=== PATIENT | female | born 1935 | race Caucasian/White ===

== ENCOUNTER → 2023-05-18 11:37 | Outpatient (REF) | payer OTHER, SELFPAY ==
[2023-05-18 12:50] LABS: Hematocrit 37.8 % (37.0-47.0); Hemoglobin 12.2 g/dL (12.0-16.0)
[2023-05-18 12:57] LABS: Intact PTH 131.2 pg/ml (13.6-85.8)
[2023-05-18 12:58] LABS: Protein/creatinine Ratio 2.5; Urine Protein 97 mg/dl
[2023-05-18 13:19] LABS: Albumin 3.7 g/dl (3.5-5.0); Blood Urea Nitrogen 36 mg/dl (7-17); Calcium 9.1 mg/dl (8.4-10.2); Carbon Dioxide 28 mmol/L (22-30); Chloride 103 mmol/L (98-107); Glucose 255 mg/dl (70-99); Phosphorus 4.9 mg/dl (2.5-4.5); Sodium 138 mmol/L (135-145)
== END ==
LOC: REG 11:37
PROVIDERS: ATTENDING PHYSICIAN Specialist; FAMILY PHYSICIAN Family Medicine; REFERRING PHYSICIAN Internal Medicine Cardiovascular Disease
DX: N18.32 Chronic kidney disease, stage 3b (principal)
CPT/HCPCS: 36415; 80069; 82570; 83970; 84156; 85014; 85018

== ENCOUNTER → 2023-06-23 10:56 | Outpatient (REF) | payer OTHER, SELFPAY ==
[2023-06-23 11:54] LABS: NT-proBNP 963 pg/ml
[2023-06-23 12:01] LABS: Blood Urea Nitrogen 42 mg/dl (7-17); Calcium 9.1 mg/dl (8.4-10.2); Carbon Dioxide 26 mmol/L (22-30); Chloride 102 mmol/L (98-107); Glucose 215 mg/dl (70-99); Potassium 4.1 mmol/L (3.5-5.1); Sodium 136 mmol/L (135-145); eGFR 23.88
[2023-06-26 02:42] LABS: 24 Hour Urine Total Volume Random mL; Urine Collection Length Random hr; Urine Free Kappa Light Chains 154.58 mg/L (0.00-32.90); Urine Free Lambda Light Chains 40.67 mg/L (0.00-3.79)
[2023-06-26 20:06] LABS: Albumin 3.84 g/dL (3.75-5.01); Alpha 1 Globulin 0.29 g/dL (0.19-0.46); Alpha 2 Globulin 1.04 g/dL (0.48-1.05); IgG 930 mg/dL (768-1632); IgM 90 mg/dL (35-263); SPEP IFE Reflex IFE Done; Total Protein-Electrophoresis 7.1 g/dL (6.3-8.2)
[2023-06-26 20:07] LABS: IgA 368 mg/dL (68-408)
== END ==
LOC: REG 10:56
PROVIDERS: ATTENDING PHYSICIAN Specialist; FAMILY PHYSICIAN Family Medicine
DX: N18.32 Chronic kidney disease, stage 3b (principal); I10 Essential (primary) hypertension; R06.09 Other forms of dyspnea; I50.22 Chronic systolic (congestive) heart failure
CPT/HCPCS: 36415; 80069; 82784; 83521; 83880; 84155; 84156; 84165; 86334; 86335

== ENCOUNTER → 2023-07-10 13:22 | Outpatient (REF) | payer OTHER, SELFPAY | LOC: HWRAD 13:22 | PROVIDERS: ATTENDING PHYSICIAN Specialist; FAMILY PHYSICIAN Family Medicine | DX: N39.0 Urinary tract infection, site not specified (principal) | CPT/HCPCS: 76770 ==

== ENCOUNTER → 2023-10-19 13:59 | Outpatient (REF) | payer OTHER, SELFPAY ==
[2023-10-19 15:04] LABS: Blood Urea Nitrogen 54 mg/dl (7-17); Calcium 9.3 mg/dl (8.4-10.2); Carbon Dioxide 22 mmol/L (22-30); Chloride 102 mmol/L (98-107); Glucose 382 mg/dl (70-99); Potassium 3.9 mmol/L (3.5-5.1); Sodium 136 mmol/L (135-145); eGFR 23.88
== END ==
LOC: REG 13:59
PROVIDERS: ATTENDING PHYSICIAN Internal Medicine; FAMILY PHYSICIAN Family Medicine
DX: N18.32 Chronic kidney disease, stage 3b (principal)
CPT/HCPCS: 36415; 80048

== ENCOUNTER → 2023-11-02 12:22 | Outpatient (REF) | payer OTHER, SELFPAY ==
[2023-11-02 15:01] LABS: Blood Urea Nitrogen 66 mg/dl (7-17); Calcium 9.6 mg/dl (8.4-10.2); Carbon Dioxide 25 mmol/L (22-30); Chloride 102 mmol/L (98-107); Glucose 246 mg/dl (70-99); Potassium 4.1 mmol/L (3.5-5.1); Sodium 138 mmol/L (135-145); eGFR 22.52
== END ==
LOC: REG 12:22
PROVIDERS: ATTENDING PHYSICIAN Specialist; FAMILY PHYSICIAN Family Medicine
DX: N18.4 Chronic kidney disease, stage 4 (severe) (principal)
CPT/HCPCS: 36415; 80048

== ENCOUNTER → 2023-11-11 09:25 | Outpatient (REF) | payer OTHER, SELFPAY ==
[2023-11-11 11:15] LABS: % Basophils 0.3 % (0-2); % Eosinophils 1.9 % (0-6); % Immature Granulocytes 0.7 % (0-0.5); % Lymphocytes 16.5 % (20.5-51.1); % Monocytes 8.4 % (1.7-9.3); % Neutrophils 72.2 % (42.2-75.2); Absolute Eosinophils 0.1 10^3/uL (0-0.7); Absolute Immature Granulocytes 0.1 10^3/uL (0-0.05); Absolute Lymphocytes 1.1 10^3/uL (1.2-3.4); Absolute Monocytes 0.6 10^3/uL (0.1-0.6); Absolute Neutrophils 4.8 10^3/uL (1.4-6.5); Hematocrit 35.6 % (37.0-47.0); Hemoglobin 11.6 g/dL (12.0-16.0); Mean Corp Hgb Conc. 32.6 g/dL (33.0-37.0); Mean Corpuscular Volume 79.6 fL (81.0-99.0); Mean Platelet Volume 11.5 fL (7.4-10.4); Nucleated Red Blood Cells % 0 %; Platelet Count 133 10^3/uL (130-400); Red Blood Cell Count 4.47 10^6/uL (4.20-5.40); Red Cell Dist. Width 15.8 % (11.5-14.5); White Blood Cell Count 6.7 10^3/uL (4.8-10.8)
[2023-11-11 13:06] LABS: Glycohemoglobin (HgbA1c) 8.8 % (4.0-5.6)
== END ==
LOC: REG 09:25
PROVIDERS: ATTENDING PHYSICIAN Family Medicine
DX: E11.65 Type 2 diabetes mellitus with hyperglycemia (principal)
CPT/HCPCS: 36415; 83036; 85025

== ENCOUNTER → 2023-11-24 09:47 | Outpatient (REF) | payer OTHER, SELFPAY ==
[2023-11-24 10:38] LABS: % Basophils 0.5 % (0-2); % Eosinophils 2.4 % (0-6); % Immature Granulocytes 0.5 % (0-0.5); % Lymphocytes 19.9 % (20.5-51.1); % Monocytes 6.9 % (1.7-9.3); % Neutrophils 69.8 % (42.2-75.2); Absolute Eosinophils 0.2 10^3/uL (0-0.7); Absolute Lymphocytes 1.3 10^3/uL (1.2-3.4); Absolute Monocytes 0.4 10^3/uL (0.1-0.6); Absolute Neutrophils 4.4 10^3/uL (1.4-6.5); Hematocrit 39.2 % (37.0-47.0); Hemoglobin 12.6 g/dL (12.0-16.0); Mean Corp Hgb Conc. 32.1 g/dL (33.0-37.0); Mean Corpuscular Hgb 25.9 pg (27.0-31.0); Mean Corpuscular Volume 80.7 fL (81.0-99.0); Mean Platelet Volume 10.9 fL (7.4-10.4); Nucleated Red Blood Cells % 0 %; Platelet Count 147 10^3/uL (130-400); Red Blood Cell Count 4.86 10^6/uL (4.20-5.40); Red Cell Dist. Width 16.1 % (11.5-14.5); White Blood Cell Count 6.3 10^3/uL (4.8-10.8)
[2023-11-24 10:47] LABS: ALT (SGPT) 16 U/L (0-35); AST (SGOT) 26 U/L (14-36); Albumin 4.2 g/dl (3.5-5.0); Alkaline Phosphatase 98 U/L (38-126); Blood Urea Nitrogen 43 mg/dl (7-17); Calcium 8.9 mg/dl (8.4-10.2); Carbon Dioxide 25 mmol/L (22-30); Chloride 101 mmol/L (98-107); Glucose 241 mg/dl (70-99); HDL Cholesterol 46 mg/dl; LDL Cholesterol, Calculated 103 mg/dl; Potassium 4.2 mmol/L (3.5-5.1); Sodium 137 mmol/L (135-145); Total Bilirubin 0.5 mg/dl (0.2-1.3); Total Cholesterol 203 mg/dl (50-199); Total Protein 6.9 g/dl (6.3-8.2); Triglyceride 271 mg/dl (10-149); Very Low Density Lipoprotein 54 mg/dl (0-30); eGFR 22.52
[2023-11-24 11:17] LABS: TSH Reflex To Free T4 4.37 uIU/ml (0.47-4.68)
[2023-11-24 12:00] LABS: Microalbumin/creatinine Ratio 851.1 mg/g
== END ==
LOC: REG 09:47
PROVIDERS: ATTENDING PHYSICIAN Family Medicine
DX: I50.22 Chronic systolic (congestive) heart failure (principal); Z71.89 Other specified counseling; Z13.9 Encounter for screening, unspecified; Z68.27 Body mass index [BMI] 27.0-27.9, adult; E66.3 Overweight; R30.0 Dysuria; E11.65 Type 2 diabetes mellitus with hyperglycemia; I10 Essential (primary) hypertension; D50.0 Iron deficiency anemia secondary to blood loss (chronic); N18.31 Chronic kidney disease, stage 3a; I35.0 Nonrheumatic aortic (valve) stenosis; F41.9 Anxiety disorder, unspecified
CPT/HCPCS: 36415; 80053; 80061; 82043; 82570; 84443; 85025

== ENCOUNTER → 2024-03-15 11:08 | Outpatient (REF) | payer OTHER, SELFPAY ==
[2024-03-15 11:59] LABS: Hematocrit 40.1 % (37.0-47.0); Hemoglobin 13.2 g/dL (12.0-16.0)
[2024-03-15 12:21] LABS: Urine Albumin 2+ (Neg - Trace); Urine Bilirubin Negative (Negative); Urine Character Very Cloudy (Clear); Urine Color Yellow; Urine Glucose 3+ (Negative); Urine Ketone Negative (Negative); Urine Leukocyte 2+ (Negative); Urine Nitrite Negative (Negative); Urine Occult Blood 2+ (Negative); Urine Specific Gravity 1.015 (<1.030); Urine Urobilinogen Negative (Neg - 1+)
[2024-03-15 12:31] LABS: Albumin 4.2 g/dl (3.5-5.0); Blood Urea Nitrogen 46 mg/dl (7-17); Calcium 8.9 mg/dl (8.4-10.2); Carbon Dioxide 24 mmol/L (22-30); Chloride 102 mmol/L (98-107); Glucose 254 mg/dl (70-99); Potassium 3.7 mmol/L (3.5-5.1); Sodium 139 mmol/L (135-145)
[2024-03-15 12:44] LABS: Intact PTH 281.9 pg/ml (13.6-85.8)
[2024-03-15 14:48] LABS: Urine Amorphous Seen; Urine Mucus Few
[2024-03-15 14:49] LABS: Urine Bacteria Many (Negative); Urine White Cell >100 /HPF (0-5)
[2024-03-15 17:06] LABS: Vitamin D, 25-OH*** 19.5 ng/mL (30-80)
[2024-03-15 17:26] LABS: Protein/creatinine Ratio 2.9; Urine Protein 153 mg/dl
[2024-03-15 18:08] LABS: Microalbumin, Random Urine > 57.0 mg/dl (0.6-1.7)
== END ==
LOC: REG 11:08
PROVIDERS: ATTENDING PHYSICIAN Specialist; FAMILY PHYSICIAN Family Medicine
DX: N18.4 Chronic kidney disease, stage 4 (severe) (principal)
CPT/HCPCS: 36415; 80069; 81003; 81015; 82043; 82306; 82570; 83735; 83970; 84156; 85014; 85018

== ENCOUNTER → 2024-04-21 10:46 | Outpatient (REF) | payer OTHER, SELFPAY ==
[2024-04-21 12:09] LABS: Blood Urea Nitrogen 55 mg/dl (7-17); Calcium 9.2 mg/dl (8.4-10.2); Carbon Dioxide 21 mmol/L (22-30); Chloride 104 mmol/L (98-107); Glucose 219 mg/dl (70-99); Potassium 4.3 mmol/L (3.5-5.1); Sodium 138 mmol/L (135-145); eGFR 23.73
== END ==
LOC: REG 10:46
PROVIDERS: ATTENDING PHYSICIAN Specialist; FAMILY PHYSICIAN Family Medicine
DX: N18.4 Chronic kidney disease, stage 4 (severe) (principal)
CPT/HCPCS: 36415; 80048

== ENCOUNTER → 2024-05-04 12:39 | Outpatient (REF) | payer OTHER, SELFPAY ==
--- NOTE | 2024-05-04 14:36 | CARDSERVLU ---
Echocardiogram with Lumason completed after protocol screening completed. Allergies verified.
Patent IV site: __Rt AC___
IV site flushed with 0.9% NaCl pre and post administration.
Diluted bolus method utilized to enhance visualization of ventricular sykes.
Total volume given: __3.5__ mL
Patient tolerated all procedures well without complications.
#22 chavez placed Rt AC. Lumason given. INT removed. dsg applied. pressure held. No bleeding noted
== END ==
LOC: RCS 12:39
PROVIDERS: ATTENDING PHYSICIAN Internal Medicine Cardiovascular Disease; FAMILY PHYSICIAN Family Medicine
DX: I50.22 Chronic systolic (congestive) heart failure (principal)
CPT/HCPCS: 93306; Q9950

== ENCOUNTER → 2024-05-23 11:46 | Outpatient (REF) | payer OTHER, SELFPAY ==
[2024-05-23 13:31] LABS: Blood Urea Nitrogen 58 mg/dl (7-17); Carbon Dioxide 25 mmol/L (22-30); Chloride 102 mmol/L (98-107); Glucose 238 mg/dl (70-99); Potassium 4.5 mmol/L (3.5-5.1); Sodium 138 mmol/L (135-145); eGFR 23.73
== END ==
LOC: REG 11:46
PROVIDERS: ATTENDING PHYSICIAN Specialist; FAMILY PHYSICIAN Family Medicine
DX: N18.4 Chronic kidney disease, stage 4 (severe) (principal)
CPT/HCPCS: 36415; 80048

== ENCOUNTER → 2024-06-30 10:16 | Outpatient (REF) | payer OTHER, SELFPAY ==
[2024-06-30 11:12] LABS: % Basophils 0.7 % (0-2); % Eosinophils 2.1 % (0-6); % Immature Granulocytes 0.5 % (0-0.5); % Lymphocytes 18.2 % (20.5-51.1); % Monocytes 7.1 % (1.7-9.3); % Neutrophils 71.4 % (42.2-75.2); Absolute Eosinophils 0.1 10^3/uL (0-0.7); Absolute Monocytes 0.4 10^3/uL (0.1-0.6); Hematocrit 37.1 % (37.0-47.0); Mean Corp Hgb Conc. 32.3 g/dL (33.0-37.0); Mean Corpuscular Volume 83.6 fL (81.0-99.0); Mean Platelet Volume 10.9 fL (7.4-10.4); Nucleated Red Blood Cells % 0 %; Platelet Count 115 10^3/uL (130-400); Red Blood Cell Count 4.44 10^6/uL (4.20-5.40); Red Cell Dist. Width 15.1 % (11.5-14.5); White Blood Cell Count 5.7 10^3/uL (4.8-10.8)
[2024-06-30 11:45] LABS: ALT (SGPT) 17 U/L (0-35); AST (SGOT) 21 U/L (14-36); Albumin 4.1 g/dl (3.5-5.0); Alkaline Phosphatase 105 U/L (38-126); Blood Urea Nitrogen 56 mg/dl (7-17); Calcium 9.3 mg/dl (8.4-10.2); Carbon Dioxide 24 mmol/L (22-30); Chloride 104 mmol/L (98-107); Glucose 237 mg/dl (70-99); HDL Cholesterol 40 mg/dl; LDL Cholesterol, Calculated 104 mg/dl; Phosphorus 4.7 mg/dl (2.5-4.5); Potassium 4.3 mmol/L (3.5-5.1); Sodium 140 mmol/L (135-145); Total Bilirubin 0.6 mg/dl (0.2-1.3); Total Cholesterol 210 mg/dl (50-199); Triglyceride 334 mg/dl (10-149); Very Low Density Lipoprotein 66 mg/dl (0-30); eGFR 22.38
[2024-06-30 12:01] LABS: Vitamin D, 25-OH*** 36.4 ng/mL (30-80)
[2024-06-30 12:11] LABS: Protein/creatinine Ratio 1.7; Urine Protein 92 mg/dl
[2024-06-30 12:15] LABS: TSH Reflex To Free T4 3.77 uIU/ml (0.47-4.68)
[2024-06-30 12:30] LABS: Microalbumin, Random Urine 33.4 mg/dl (0.6-1.7); Microalbumin/creatinine Ratio 627.8 mg/g
[2024-06-30 12:51] LABS: Glycohemoglobin (HgbA1c) 9.1 % (4.0-5.6)
[2024-07-02 09:15] LABS: Intact PTH 141.3 pg/ml (13.6-85.8)
== END ==
LOC: REG 10:16
PROVIDERS: ATTENDING PHYSICIAN Specialist; FAMILY PHYSICIAN Family Medicine
DX: I10 Essential (primary) hypertension (principal); E78.2 Mixed hyperlipidemia; D50.9 Iron deficiency anemia, unspecified; N18.4 Chronic kidney disease, stage 4 (severe); E11.65 Type 2 diabetes mellitus with hyperglycemia; Z71.89 Other specified counseling; Z68.30 Body mass index [BMI] 30.0-30.9, adult; E66.9 Obesity, unspecified; N18.31 Chronic kidney disease, stage 3a; I50.22 Chronic systolic (congestive) heart failure; I35.0 Nonrheumatic aortic (valve) stenosis; N39.0 Urinary tract infection, site not specified; D50.0 Iron deficiency anemia secondary to blood loss (chronic); F41.9 Anxiety disorder, unspecified; E21.3 Hyperparathyroidism, unspecified; D69.2 Other nonthrombocytopenic purpura; K64.1 Second degree hemorrhoids
CPT/HCPCS: 36415; 80053; 80061; 82043; 82306; 82570; 83036; 83970; 84100; 84156; 84443; 85025

== ENCOUNTER → 2024-09-09 11:26 | Outpatient (REF) | payer OTHER, SELFPAY ==
[2024-09-09 14:22] LABS: ALT (SGPT) 15 U/L (0-35); AST (SGOT) 19 U/L (14-36); Alkaline Phosphatase 95 U/L (38-126); Blood Urea Nitrogen 71 mg/dl (7-17); Calcium 9.2 mg/dl (8.4-10.2); Carbon Dioxide 19 mmol/L (22-30); Chloride 110 mmol/L (98-107); Glucose 262 mg/dl (70-99); Potassium 3.7 mmol/L (3.5-5.1); Sodium 141 mmol/L (135-145); Total Bilirubin 0.6 mg/dl (0.2-1.3); Total Protein 6.7 g/dl (6.3-8.2); eGFR 23.73
[2024-09-09 14:33] LABS: Glycohemoglobin (HgbA1c) 9.5 % (4.0-5.6)
== END ==
LOC: REG 11:26
PROVIDERS: ATTENDING PHYSICIAN Specialist; FAMILY PHYSICIAN Family Medicine
DX: N18.4 Chronic kidney disease, stage 4 (severe) (principal); E11.65 Type 2 diabetes mellitus with hyperglycemia
CPT/HCPCS: 36415; 80053; 83036

== ENCOUNTER → 2025-02-09 11:51 | Outpatient (REF) | payer OTHER, SELFPAY ==
[2025-02-09 13:35] LABS: Hematocrit 38.7 % (37.0-47.0); Hemoglobin 11.8 g/dL (12.0-16.0); Mean Corp Hgb Conc. 30.5 g/dL (33.0-37.0); Mean Corpuscular Volume 83.4 fL (81.0-99.0); Nucleated Red Blood Cells % 0 %; Platelet Count 137 10^3/uL (130-400); Red Cell Dist. Width 14.7 % (11.5-14.5)
[2025-02-09 14:07] LABS: ALT (SGPT) 16 U/L (0-35); AST (SGOT) 21 U/L (14-36); Albumin 3.9 g/dl (3.5-5.0); Alkaline Phosphatase 97 U/L (38-126); Blood Urea Nitrogen 53 mg/dl (7-17); Calcium 8.6 mg/dl (8.4-10.2); Carbon Dioxide 26 mmol/L (22-30); Chloride 103 mmol/L (98-107); Glucose 255 mg/dl (70-99); HDL Cholesterol 38 mg/dl; Iron 83 ug/dl (37-170); LDL Cholesterol, Calculated 75 mg/dl; Potassium 4.4 mmol/L (3.5-5.1); Sodium 138 mmol/L (135-145); Total Protein 6.9 g/dl (6.3-8.2); Very Low Density Lipoprotein 65 mg/dl (0-30); eGFR 22.38
[2025-02-09 14:09] LABS: Microalbumin, Random Urine 32.6 mg/dl (0.6-1.7)
[2025-02-09 14:19] LABS: Total Iron Binding Capacity 345 ug/dl (265-497)
[2025-02-09 14:43] LABS: Ferritin 20.6 ng/ml (11.1-264.0)
[2025-02-10 10:25] LABS: Glycohemoglobin (HgbA1c) 10.0 % (4.0-5.9)
== END ==
LOC: REG 11:51
PROVIDERS: ATTENDING PHYSICIAN Family Medicine
DX: Z00.01 Encounter for general adult medical examination with abnormal findings (principal); Z71.89 Other specified counseling; Z68.29 Body mass index [BMI] 29.0-29.9, adult; E66.3 Overweight; E11.65 Type 2 diabetes mellitus with hyperglycemia; N18.31 Chronic kidney disease, stage 3a; I50.22 Chronic systolic (congestive) heart failure; I10 Essential (primary) hypertension; I35.0 Nonrheumatic aortic (valve) stenosis; N39.0 Urinary tract infection, site not specified; D50.0 Iron deficiency anemia secondary to blood loss (chronic); F41.9 Anxiety disorder, unspecified; E21.3 Hyperparathyroidism, unspecified; D69.2 Other nonthrombocytopenic purpura; K64.1 Second degree hemorrhoids; R26.89 Other abnormalities of gait and mobility; Z23 Encounter for immunization
CPT/HCPCS: 36415; 80053; 80061; 82043; 82728; 83036; 83540; 83550; 84443; 85025

== ENCOUNTER → 2025-03-09 11:49 | Outpatient (REF) | payer OTHER, SELFPAY ==
[2025-03-09 12:33] LABS: Hematocrit 40.4 % (37.0-47.0); Hemoglobin 12.3 g/dL (12.0-16.0)
[2025-03-09 13:24] LABS: Albumin 4.0 g/dl (3.5-5.0); Blood Urea Nitrogen 49 mg/dl (7-17); Calcium 8.8 mg/dl (8.4-10.2); Carbon Dioxide 26 mmol/L (22-30); Chloride 104 mmol/L (98-107); Glucose 211 mg/dl (70-99); Potassium 4.0 mmol/L (3.5-5.1); Sodium 137 mmol/L (135-145); eGFR 22.38
== END ==
LOC: REG 11:49
PROVIDERS: ATTENDING PHYSICIAN Specialist; FAMILY PHYSICIAN Family Medicine
DX: N18.4 Chronic kidney disease, stage 4 (severe) (principal)
CPT/HCPCS: 36415; 80069; 82570; 83970; 84156; 85014; 85018